=== PATIENT | male | born 1970 | race Caucasian/White ===

== ENCOUNTER 2022-07-05 12:51 | Emergency (ER) | payer OTHER, SELFPAY ==
[2022-07-05 13:24] VITALS: BP 157/94; PULSE 82; RESP 17; TEMP 36.6; O2SAT 95; BMI 38.0
--- NOTE | 2022-07-05 13:24 | DI.RAD.S_ITS ---
PROCEDURE: XR WRIST LT MIN 3V INDICATIONS: Wrist pain TECHNIQUE: 4 views of the wrist were acquired. COMPARISON: None. FINDINGS: There is no suspicious lytic or blastic osseous lesion. Normal alignment of the wrist and carpal apparatus. [id number] degenerative changes characterized by joint space narrowing with marginal osteophytosis. Scaphoid is intact. Normal scapholunate interval. Ossific/calcific density within the TFCC could region most likely represents degenerative calcification, less likely a remote ulnar styloid or triquetral fracture fragment. IMPRESSION: Calcific density in the TFCC region is likely degenerative ligamentous calcification or chondrocalcinosis, less likely a remote ulnar styloid fracture or triquetral fracture fragment. No acute finding. Dictated by: Connor Fung M.D. on 07/05/2022 at 14:20 Approved by: Connor Fung M.D. on 07/05/2022 at 14:26
--- NOTE | 2022-07-05 16:14 | PC.NURSE ---
left wrist splint placed
--- NOTE | 2022-07-05 20:35 | ED_ITS ---
HPI - Extremity Injury (Upper) <Niesha Boyer PA-C - Last Filed: 07/06/22 12:21> General Chief Complaint: Extremity Injury, Upper Stated Complaint: left wrist pain x5 days Time Seen by Provider: 07/05/22 15:14 Source: patient Mode of arrival: Ambulatory History of Present Illness HPI narrative: 51-year-old male presents to the ED with 4 days of left wrist pain. Patient denies any known trauma. Patient states he was lifting some heavy objects 5 days ago, the next day started feeling discomfort in his left wrist. Discomfort gradually worsened over the next couple of days. Patient denies numbness, tingling, weakness, fever, chills. Patient endorses full range of motion. Related Data Home Medications Medication Instructions Recorded Confirmed No Known Home Medications 07/05/22 07/05/22 Allergies Allergy/AdvReac Type Severity Reaction Status Date / Time No Known Drug Allergies Allergy Verified 07/05/22 13:28 Review of Systems <Niesha Boyer PA-C - Last Filed: 07/06/22 12:21> Review of Systems ROS Unobtainable: All systems reviewed & are unremarkable except as noted in HPI and below Constitutional Constitutional: Denies chills, Denies fatigue, Denies fever(s), Denies frequent falls, Denies lethargy and Denies weakness Eyes Eyes: Denies change in vision, Denies eye discharge, Denies irritation and Denies loss of vision ENT Ears, Nose, Mouth, and Throat: Denies change in voice, Denies dizziness, Denies neck pain, Denies sore throat and Denies throat swelling Cardiovascular Cardiovascular: Denies chest pain, Denies irregular heart rhythm, Denies lightheadedness, Denies palpitations, Denies dyspnea, Denies dyspnea on exertion and Denies orthopnea Respiratory Respiratory: Denies cough, Denies dyspnea, Denies dyspnea on exertion and Denies wheezing Gastrointestinal Gastrointestinal: Denies abdominal pain, Denies change in bowel habits, Denies diarrhea, Denies nausea and Denies vomiting Genitourinary Genitourinary: Denies hematuria, Denies flank pain, Denies urinary incontinence and Denies urinary urgency Musculoskeletal Musculoskeletal: Denies back pain, Denies muscle weakness, Denies neck pain, Denies numbness and Denies tingling Comments: L wrist pain Integumentary/Breasts Skin/Breast: Denies pruritus, Denies erythema, Denies rash and Denies wounds Neurologic Neurologic: Denies behavioral changes, Denies confusion, Denies dizziness, Denies frequent falls, Denies loss of vision, Denies numbness, Denies tingling and Denies weakness Psychiatric Psychiatric: Denies anxiety, Denies behavioral changes, Denies confusion, Denies depression, Denies homicidal ideation and Denies suicidal ideation Endocrine Endocrine: Denies fatigue, Denies flushing and Denies palpitations Hematologic/Lymphatic Hematologic/Lymphatic: Denies easy bruising Allergic/Immunologic Allergic/Immunologic: Denies urticaria, Denies throat swelling and Denies wheez ing Patient History <Niesha Boyer PA-C - Last Filed: 07/06/22 12:21> Social History Smoking Status: Never smoker Smoking Status: Never smoker alcohol intake frequency: a few times a week Substance Use Type: does not use Exam <Niesha Boyer PA-C - Last Filed: 07/06/22 12:21> Narrative Exam Narrative: Const General:?cooperative, healthy appearing and comfortable [facility] Head:?normal to inspection Ears:?hearing grossly normal bilaterally Nose:?external nose normal Face and sinus:?normal facial exam and sinuses nontender Mouth:?oral mucosae normal Throat:?posterior oropharynx normal Eyes General:?appearance normal, both eyes and all related structures Neck Neck:?normal visual inspection and no lymphadenopathy noted Resp Effort & Inspection:?normal respiratory effort Auscultation:?clear to auscultation bilaterally Cardio Rate:?regular rate Rhythm:?regular rhythm Musculoskeletal Mild swelling, tenderness to palpation noted to the left wrist. There is full range of motion, although movement is painful for the patient. Strength and sensation intact. Patient is neurovascularly intact. Neuro General:?patient alert, patient awake and patient oriented x3 Initial Vital Signs Initial Vital Signs: Vital Signs Temperature 98 F 07/05/22 13:24 Pulse Rate 82 07/05/22 13:24 Respiratory Rate 17 07/05/22 13:24 Blood Pressure 157/94 H 07/05/22 13:24 Pulse Oximetry 95 07/05/22 13:24 Oxygen Delivery Method 07/05/22 13:24 <Emeka Abernathy DO - Last Filed: 07/07/22 06:43> Initial Vital Signs Initial Vital Signs: Vital Signs Temperature 98 F 07/05/22 13:24 Pulse Rate 82 07/05/22 13:24 Respiratory Rate 17 07/05/22 13:24 Blood Pressure 157/94 H 07/05/22 13:24 Pulse Oximetry 95 07/05/22 13:24 Oxygen Delivery Method 07/05/22 13:24 Course <Niesha Boyer PA-C - Last Filed: 07/06/22 12:21> Orders Ordered: ED Orders 07/05/22 13:24 XR wrist LT min 3V Stat Vital Signs Vital signs: Vital Signs - 8 hr 07/05/22 13:24 Temperature 98 F Pulse Rate 82 Respiratory Rate 17 Blood Pressure 157/94 H Pulse Oximetry 95 Oxygen Delivery Method Room Air <Emeka Abernathy DO - Last Filed: 07/07/22 06:43> Orders Ordered: ED Orders 07/05/22 13:24 XR wrist LT min 3V Stat Vital Signs Vital signs: Vital Signs - 8 hr 07/05/22 13:24 Temperature 98 F Pulse Rate 82 Respiratory Rate 17 Blood Pressure 157/94 H Pulse Oximetry 95 Oxygen Delivery Method Room Air MDM - Extremity Injury (Upper) <Niesha Boyer PA-C - Last Filed: 07/06/22 12:21> MDM Narrative Medical decision making narrative: 51-year-old male presents to the ED with 4 days of left wrist pain. Concern for fracture/dislocation versus musculoskeletal sprain/strain. Obtained wrist x-ray. X-ray shows Calcific density in the TFCC region which is is likely degenerative ligamentous calcification or chondrocalcinosis, less likely a remote ulnar styloid fracture or triquetral fracture fragment.? No acute finding.? History also correlates more accurately with a sprain/strain. Patient's wrist fitted in a wrist brace, recommend ortho follow-up if symptoms do not improve in 3-5 days. ED return precautions were discussed with patient. Patient verbalized understanding. Medical records reviewed: yes ? Discharge Plan Departure Patient Disposition: Home Clinical Impression: Sprain and strain of wrist Instructions: DI for Wrist Sprain Activity Restrictions/Additional Instructions: You were evaluated in the ED today for wrist pain. Your x-ray shows a small calcification that is unlikely a fracture fragment. Your symptoms are likely due to a wrist sprain/strain. You are being fitted with a splint for comfort and healing. You may also take ibuprofen 800 mg 3 times a day with food for the pain and swelling. Please rest the wrist for a few days. You may also follow- up with [facility] at [phone] if your symptoms do not improve in the next 3-5 days. Return to the ED if you experience any numbness, tingling, weakness. Prescriptions: No Action No Known Home Medications Stand Alone Forms: Patient Portal/API <Emeka Abernathy DO - Last Filed: 07/07/22 06:43> Cosign ED Attending Cosisraelature Attestation: I was immediately available in the department for consultation. This documentation has been reviewed and I agree with assessment and plan. Supervised by Emeka Abernathy DO
== END 2022-07-05 16:24 | disposition home or self-care (01) ==
PROVIDERS: Emergency Provider Student in an Organized Health Care Education/Training Program
DX: S63.502A Unspecified sprain of left wrist, initial encounter (principal); S66.912A Strain of unspecified muscle, fascia and tendon at wrist and hand level, left hand, initial encounter; X50.0XXA Overexertion from strenuous movement or load, initial encounter
CPT/HCPCS: 73110; 99283

== ENCOUNTER 2024-07-05 09:06 | Emergency (ER) | payer BC, OTHER, SELFPAY ==
[2024-07-05 09:13] VITALS: BP 147/107; PULSE 112; RESP 14; TEMP 36.6; O2SAT 97; BMI 40.6
--- NOTE | 2024-07-05 09:16 | DI.RAD.S_ITS ---
PROCEDURE: XR KNEE RT 3V INDICATIONS: knee pain TECHNIQUE: 3 views of the knee were acquired. COMPARISON: None. FINDINGS: Bones: No fractures or dislocations. Osteoarthritis, most notably in the patellofemoral compartment where there is severe lateral joint space loss. No suspicious bony lesions. Soft tissues: No joint effusion. No suspicious soft tissue calcifications. IMPRESSION: Osteoarthritis, predominantly involving the patellofemoral compartment. Dictated by: Maik Wood M.D. on 07/05/2024 at 10:27 Approved by: Maik Wood M.D. on 07/05/2024 at 10:28
--- NOTE | 2024-07-05 11:57 | ED_ITS ---
<Statement entered by David Vásquez, - 07/05/24 13:59> Dr. Vásquez: I was immediately available in the department for consultation. I did not actually see the patient. HPI - Extremity Problem General Chief complaint: Extremity Problem,Nontraumatic Stated complaint: Right knee pain Time Seen by Provider: 07/05/24 11:39 Mode of arrival: Wheelchair History of Present Illness HPI Narrative: Mr. Garza is a very pleasant 53-year-old male with a past medical history of hypertension not on antihypertensives, gout, obesity who presents to the emergency department for nontraumatic right knee pain. Patient states his right knee started bothering him about 2 weeks ago and he does not recall a specific injury but reports that it was icy. Last night the right knee started bothering him much more and today he is having trouble walking/bearing weight on the right knee. Describes the pain as primarily on the anterior aspect of the right knee but now it is generally the entire right knee joint. He denies any redness, fevers, increased warmth. 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 No medications prior to arrival. Related Data Previous Rx's Medication Instructions Recorded colchicine 0.6 mg capsule 0.6 mg PO BID #180 caps 05/03/24 fluticasone propionate 50 1 spray intranasal DAILY #16 grams 05/03/24 mcg/actuation nasal spray,suspension (Flonase Allergy Relief) losartan 25 mg tablet 25 mg PO DAILY #60 tabs 05/03/24 naproxen 500 mg tablet 500 mg PO BID PRN pain #20 tabs 07/05/24 Allergies Allergy/AdvReac Type Severity Reaction Status Date / Time No Known Drug Allergies Allergy Verified 07/05/24 09:13 Review of Systems Review of Systems ROS Unobtainable: All systems reviewed & are unremarkable except as noted in HPI and below Patient History Medical History Persistent dry cough Obesity Gout Hypertension Social History Smoking Status: Never smoker Smoking Status: Never smoker alcohol intake frequency: a few times a week Exam Narrative Exam Narrative: GENERAL: 53 year old patient appears stated age. Obese patient, in no acute distress. RESPIRATORY: ?Nonlabored respirations. ?Speaking in clear, full sentences. ? EXTREMITIES: Right knee with no obvious deformities. He has diffuse right knee pain with passive flexion and extension of the knee primarily on the anterior aspect. No reproducible joint laxity. No obvious effusion. No erythema or increased warmth. Right lower extremity compartments soft, compressible. Bilateral extremities warm and well perfused. NEURO: AOx3. ?Clear speech. ?Sensation intact to light touch throughout the lower extremities. SKIN: No rash or erythema of visible areas Initial Vital Signs Initial Vital Signs: Vital Signs Temperature 97.9 F 07/05/24 09:13 Pulse Rate 112 H 07/05/24 09:13 Respiratory Rate 14 07/05/24 09:13 Blood Pressure 147/107 H 07/05/24 09:13 Pulse Oximetry 97 07/05/24 09:13 Oxygen Delivery Method Room Air 07/05/24 09:13 Course Orders Ordered: ED Orders 07/05/24 09:16 XR knee RT 3V Stat Discontinued Medications Hydrocodone Bitart/Acetaminophen (Hydrocodone/Acet 5/325 Tablet) 1 tab PO NOW ONE Stop: 07/05/24 11:54 Last Admin: 07/05/24 12:17 Dose: 1 tab Ketorolac Tromethamine (Ketorolac 30 Mg/Ml Vial) 30 mg IM NOW ONE Stop: 07/05/24 11:54 Last Admin: 07/05/24 12:17 Dose: 30 mg Vital Signs Vital signs: Vital Signs - 8 hr 07/05/24 09:13 07/05/24 12:25 Temperature 97.9 F 98.2 F Pulse Rate 112 H 104 H Respiratory Rate 14 20 Blood Pressure 147/107 H 136/89 Pulse Oximetry 97 99 Oxygen Delivery Method Room Air Room Air MDM - Extremity (Nontraumatic) Medical Records Attestation: I reviewed the patient's medical records. Imaging Data Right Knee: Radiologist's Impression: PROCEDURE: XR KNEE RT 3V INDICATIONS: knee pain TECHNIQUE: 3 views of the knee were acquired. COMPARISON: None. FINDINGS: Bones: No fractures or dislocations. Osteoarthritis, most notably in the yu llofemoral compartment where there is severe lateral joint space loss. No suspicious bony lesions. Soft tissues: No joint effusion. No suspicious soft tissue calcifications. IMPRESSION: Osteoarthritis, predominantly involving the patellofemoral compartment. MDM Narrative Medical decision making narrative: 53-year-old male with a past medical history of hypertension not on antihypertensives, gout, obesity who presents to the emergency department for nontraumatic right knee pain. Differential diagnosis includes but is not limited to arthritis, gout, sprain, strain, fracture, etc. On exam patient is in no acute distress, nontoxic appearing, heart rate slightly elevated however patient states that this is his baseline. He is afebrile. Physical exam reveals pain with flexion and extension of right knee, no obvious deformities, no overt joint laxity. Pain with bearing weight. Right knee x-ray obtained in triage reveals osteoarthritis, predominantly involving the patellofemoral compartment. We will treat patient's pain with 1 dose of hydrocodone-acetaminophen, Toradol, Foreign wrap, crutches, advised to follow up with Orthopedics for further evaluation and management. Did discuss strict rice therapy, provided patient with work note, discussed ED return precautions. He was provided with a printed copy of his x-ray. Both the patient and his verbalized understanding of all information and are agreeable to plan. He is stable for discharge home. Discharge Plan Departure Patient Disposition: Home Clinical Impression: Osteoarthritis of right knee Qualifiers: Osteoarthritis type: unspecified Qualified Code(s): M17.11 - Unilateral primary osteoarthritis, right knee Instructions: DI for Knee Pain Activity Restrictions/Additional Instructions: Thank you for coming to the emergency department. Today you were evaluated for right knee pain. X-ray of the right knee revealed severe osteoarthritis. It is very important to follow up with the orthopedic doctor for further evaluation. You may use the prescribed naproxen if needed for pain in addition to Tylenol and topical Voltaren arthritis cream. Please use RICE therapy for your pain in addition to naproxen/acetaminophen. Rest the painful area. Ice the area of pain/swelling for at least 15 minutes, 4x a day. Compress the area of swelling using a brace, wrap, or splint if applied. Elevate the painful or swollen extremity by supporting it above the level of the heart with pillows when sitting or laying. You may call to schedule an appointment with [facility] at [phone]. The on-call doctor today is Dr. Nugent. Please follow up with your primary care doctor within the next 2-3 days for ER follow-up. (If you do not have a PCP you can call [phone]. ?to schedule an appointment with an [facility] Primary Care Provider) IF YOU DEVELOP ANY NEW OR WORSENING SYMPTOMS, RETURN TO THE ER! Please read the attached instructions, they highlight more specific treatments and interventions for you at home. Thank you for letting me participate in your care, Yasemin Cuenca PA-C Prescriptions: New naproxen 500 mg tablet 500 mg PO BID PRN (Reason: pain) Qty: 20 0RF No Action colchicine 0.6 mg capsule 0.6 mg PO BID Qty: 180 2RF fluticasone propionate [Flonase Allergy Relief] 50 mcg/actuation spray,suspension 1 spray intranasal DAILY Qty: 16 0RF Rx Instructions: administer into each nostril losartan 25 mg tablet 25 mg PO DAILY Qty: 60 0RF Referrals: Carine Hummel MD [Primary Care Provider] - Stand Alone Forms: Patient Portal/API/Survey, Work Release Note
[2024-07-05] MEDS: KETOROLAC 30 MG/ML VIAL IM (12:17)
[2024-07-05] MEDS: HYDROCODONE/ACET 5/325 TABLET 1 TAB PO (12:17)
[2024-07-05 12:25] VITALS: BP 136/89; PULSE 104; RESP 20; TEMP 36.8; O2SAT 99
== END 2024-07-05 12:37 | disposition home or self-care (01) ==
PROVIDERS: Emergency Provider Physician Assistant; PCP Family Medicine
DX: M17.11 Unilateral primary osteoarthritis, right knee (principal); E66.9 Obesity, unspecified; Z68.41 Body mass index [BMI] 40.0-44.9, adult
CPT/HCPCS: 73562; 96372; 99283; 99284; J1885